=== PATIENT | female | born 1970 | race Caucasian/White ===

== ENCOUNTER 2016-06-02 09:59 | Emergency (ER) | payer OTHER ==
[2016-06-02 10:42] LABS: ALBUMIN 4.6 g/dL (3.5-5.0); BILIRUBIN - TOTAL 0.2 mg/dL (0.1-1.0); CREATININE 0.9 mg/dL (0.5-1.0); GLOBULIN (CALCULATION) 2.7 g/dL (2.2-4.2); POTASSIUM 4.4 mmol/L (3.5-5.1); TOTAL PROTEIN 7.3 g/dL (6.4-8.3)
[2016-06-02 10:43] LABS: PRO-BNP 20 pg/mL (0-125); TROPONIN T < 0.010 ng/mL
[2016-06-02 11:00] LABS: HCT 39.9 % (37.0-47.0); MCHC 35.1 g/dL (32.0-36.0); MCV 85.4 fL (78.0-100.0); PLT 212 K/uL (150-400); RBC 4.67 M/uL (4.20-5.40); WBC 10.1 K/uL (4.0-10.5)
[2016-06-02 11:14] LABS: MPV 11.9 fL (6.0-9.5); RDW 13.1 % (11.5-14.0)
[2016-06-02 11:15] LABS: EOSINOPHIL 1.6 % (0-5); LYMPHOCYTE 23.6 % (15-48); MONOCYTE 7.8 % (0-12); NEUTROPHIL 66.8 % (41-80)
[2016-06-02 11:18] LABS: BASOPHIL 0.2 % (0-2)
[2016-06-02 11:35] LABS: BILIRUBIN NEGATIVE (NEGATIVE); BLOOD 2+ Ery/uL (NEGATIVE); CLARITY CLEAR (CLEAR); COLOR YELLOW (YELLOW); GLUCOSE (U) NORMAL (NORMAL); KETONE (U) NEGATIVE (NEGATIVE); LEUKOCYTES NEGATIVE Leu/uL (NEGATIVE); NITRITE NEGATIVE (NEGATIVE); PROTEIN NEGATIVE (NEGATIVE); SPECIFIC GRAVITY <=1.005 (1.001-1.030); UROBILINOGEN 0.2 mg/dL (0.2-1.0)
[2016-06-02 11:47] LABS: BACTERIA TRACE
[2016-07-03] MEDS ORDERED: LIPITOR20 MG PO (11:49)
[2016-07-03] MEDS ORDERED: SINGULAIR10 MG PO (11:50)
[2016-07-03] MEDS ORDERED: FLONASE ALLER15.8 ML (11:50)
[2016-07-03] MEDS ORDERED: ALLEGRA ALLERG180 MG PO (11:50)
[2016-07-03] MEDS ORDERED: WELLBUTRIN SR150 M1 PO (11:51)
[2016-07-03] MEDS ORDERED: OMEPRAZOLE40 MG PO (11:51)
[2016-07-03] MEDS ORDERED: ATENOLOL25 M1 PO (11:51)
[2016-07-03] MEDS ORDERED: ALDACTONE100 MG PO (11:51)
[2016-07-03] MEDS ORDERED: ASPIRIN CHEWABL81 MG PO (11:51)
[2016-07-03] MEDS ORDERED: OSTEO BI-FLEX1 EAC1 PO (11:52)
[2016-07-03] MEDS ORDERED: BACLOFEN 10MG T10 MG PO (11:52)
[2016-07-03] MEDS ORDERED: SYNTHROID88 MCG PO (11:55)
[2016-07-03] MEDS ORDERED: WOMEN'S BIOMUL1 EACH PO (11:55)
[2016-07-03] MEDS ORDERED: CRANBERRY (11:56)
[2016-07-03] MEDS ORDERED: LOVAZA1 GM PO (11:56)
[2016-07-03] MEDS ORDERED: VITAMIN (11:56)
[2016-07-03] MEDS ORDERED: LUTEIN (11:56)
[2016-07-03] MEDS ORDERED: TRAMADOL HCL50 MG PO (11:57)
[2016-07-03] MEDS ORDERED: CHILDREN'S ALAWA5 ML OU (12:00)
[2016-07-03] MEDS ORDERED: NITROSTAT0.4 MG PO (12:02)
== END 2016-06-02 14:34 | disposition home or self-care (01) ==
LOC: FER 09:59
PROVIDERS: Emergency Medicine
DX: R07.89 Other chest pain (principal); M25.519 Pain in unspecified shoulder; I25.2 Old myocardial infarction; I10 Essential (primary) hypertension; E78.5 Hyperlipidemia, unspecified; Z79.82 Long term (current) use of aspirin; Z79.899 Other long term (current) drug therapy; Z87.891 Personal history of nicotine dependence; Z88.0 Allergy status to penicillin; Z82.49 Family history of ischemic heart disease and other diseases of the circulatory system; Z95.5 Presence of coronary angioplasty implant and graft; Z98.890 Other specified postprocedural states
CPT/HCPCS: 36415; 71020; 80053; 81001; 83880; 84484; 85025; 93005; J1885

== ENCOUNTER 2016-06-14 04:59 | Emergency (ER) | payer OTHER ==
[2016-07-03] MEDS ORDERED: LIPITOR20 MG PO (11:49)
[2016-07-03] MEDS ORDERED: SINGULAIR10 MG PO (11:50)
[2016-07-03] MEDS ORDERED: ALLEGRA ALLERG180 MG PO (11:50)
[2016-07-03] MEDS ORDERED: FLONASE ALLER15.8 ML (11:50)
[2016-07-03] MEDS ORDERED: ASPIRIN CHEWABL81 MG PO (11:51)
[2016-07-03] MEDS ORDERED: OMEPRAZOLE40 MG PO (11:51)
[2016-07-03] MEDS ORDERED: ALDACTONE100 MG PO (11:51)
[2016-07-03] MEDS ORDERED: WELLBUTRIN SR150 M1 PO (11:51)
[2016-07-03] MEDS ORDERED: ATENOLOL25 M1 PO (11:51)
[2016-07-03] MEDS ORDERED: BACLOFEN 10MG T10 MG PO (11:52)
[2016-07-03] MEDS ORDERED: OSTEO BI-FLEX1 EAC1 PO (11:52)
[2016-07-03] MEDS ORDERED: WOMEN'S BIOMUL1 EACH PO (11:55)
[2016-07-03] MEDS ORDERED: SYNTHROID88 MCG PO (11:55)
[2016-07-03] MEDS ORDERED: CRANBERRY (11:56)
[2016-07-03] MEDS ORDERED: LUTEIN (11:56)
[2016-07-03] MEDS ORDERED: LOVAZA1 GM PO (11:56)
[2016-07-03] MEDS ORDERED: VITAMIN (11:56)
[2016-07-03] MEDS ORDERED: TRAMADOL HCL50 MG PO (11:57)
[2016-07-03] MEDS ORDERED: CHILDREN'S ALAWA5 ML OU (12:00)
[2016-07-03] MEDS ORDERED: NITROSTAT0.4 MG PO (12:02)
== END 2016-06-14 07:54 | disposition left against medical advice (07) ==
LOC: FER 04:59
DX: M79.604 Pain in right leg (principal); Z53.8 Procedure and treatment not carried out for other reasons

== ENCOUNTER 2016-07-01 14:46 | Day surgery (SDCO) | payer OTHER ==
[2016-07-01 15:56] LABS: BASOPHIL 0.1 % (0-2); EOSINOPHIL 1.5 % (0-5); HCT 38.8 % (37.0-47.0); HGB 13.5 g/dl (12.5-16.0); LYMPHOCYTE 16.3 % (15-48); MCH 29.5 pg (25.0-31.0); MCHC 34.8 g/dL (32.0-36.0); MCV 84.9 fL (78.0-100.0); MONOCYTE 7.2 % (0-12); MPV 11.7 fL (6.0-9.5); NEUTROPHIL 74.9 % (41-80); PLT 217 K/uL (150-400); RBC 4.57 M/uL (4.20-5.40); RDW 13.1 % (11.5-14.0); WBC 11.8 K/uL (4.0-10.5)
[2016-07-01 16:00] LABS: PROTHROMBIN TIME 12.8 SECONDS (11.7-14.0); PTT 27.2 SECONDS (23.2-31.4)
[2016-07-01 16:03] LABS: BILIRUBIN NEGATIVE (NEGATIVE); BLOOD NEGATIVE Ery/uL (NEGATIVE); CLARITY CLEAR (CLEAR); COLOR YELLOW (YELLOW); GLUCOSE (U) NORMAL (NORMAL); KETONE (U) NEGATIVE (NEGATIVE); LEUKOCYTES NEGATIVE Leu/uL (NEGATIVE); NITRITE NEGATIVE (NEGATIVE); PROTEIN NEGATIVE (NEGATIVE); UROBILINOGEN 0.2 mg/dL (0.2-1.0); pH 5.5 (5.0-9.0)
[2016-07-01 16:07] LABS: ALBUMIN 4.4 g/dL (3.5-5.0); BILIRUBIN - TOTAL 0.2 mg/dL (0.1-1.0); CREATININE 0.9 mg/dL (0.5-1.0); GLOBULIN (CALCULATION) 2.8 g/dL (2.2-4.2); MAGNESIUM 1.88 mg/dL (1.40-2.10); POTASSIUM 4.2 mmol/L (3.5-5.1); TOTAL PROTEIN 7.2 g/dL (6.4-8.3)
[2016-07-01 16:10] LABS: CKMB 1.95 ng/mL (0.97-4.94); MYOGLOBIN 29 ng/mL (26-65); PRO-BNP 42 pg/mL (0-125); TROPONIN T < 0.010 ng/mL
[2016-07-01 22:54] LABS: TROPONIN T < 0.010 ng/mL
[2016-07-02 04:20] LABS: BASOPHIL 0.1 % (0-2); EOSINOPHIL 2.1 % (0-5); HCT 37.9 % (37.0-47.0); HGB 13.1 g/dl (12.5-16.0); LYMPHOCYTE 26.5 % (15-48); MCH 29.5 pg (25.0-31.0); MCHC 34.6 g/dL (32.0-36.0); MCV 85.4 fL (78.0-100.0); MONOCYTE 8.8 % (0-12); MPV 11.8 fL (6.0-9.5); NEUTROPHIL 62.5 % (41-80); PLT 229 K/uL (150-400); RBC 4.44 M/uL (4.20-5.40); RDW 13.1 % (11.5-14.0); WBC 11.7 K/uL (4.0-10.5)
[2016-07-02 05:13] LABS: TROPONIN T < 0.010 ng/mL
[2016-07-02 05:17] LABS: CREATININE 0.9 mg/dL (0.5-1.0); POTASSIUM 3.9 mmol/L (3.5-5.1)
[2016-07-03] MEDS ORDERED: LIPITOR20 MG PO (11:49)
[2016-07-03] MEDS ORDERED: SINGULAIR10 MG PO (11:50)
[2016-07-03] MEDS ORDERED: ALLEGRA ALLERG180 MG PO (11:50)
[2016-07-03] MEDS ORDERED: FLONASE ALLER15.8 ML (11:50)
[2016-07-03] MEDS ORDERED: ATENOLOL25 M1 PO (11:51)
[2016-07-03] MEDS ORDERED: OMEPRAZOLE40 MG PO (11:51)
[2016-07-03] MEDS ORDERED: ASPIRIN CHEWABL81 MG PO (11:51)
[2016-07-03] MEDS ORDERED: ALDACTONE100 MG PO (11:51)
[2016-07-03] MEDS ORDERED: WELLBUTRIN SR150 M1 PO (11:51)
[2016-07-03] MEDS ORDERED: OSTEO BI-FLEX1 EAC1 PO (11:52)
[2016-07-03] MEDS ORDERED: BACLOFEN 10MG T10 MG PO (11:52)
[2016-07-03] MEDS ORDERED: SYNTHROID88 MCG PO (11:55)
[2016-07-03] MEDS ORDERED: WOMEN'S BIOMUL1 EACH PO (11:55)
[2016-07-03] MEDS ORDERED: VITAMIN (11:56)
[2016-07-03] MEDS ORDERED: LUTEIN (11:56)
[2016-07-03] MEDS ORDERED: CRANBERRY (11:56)
[2016-07-03] MEDS ORDERED: LOVAZA1 GM PO (11:56)
[2016-07-03] MEDS ORDERED: TRAMADOL HCL50 MG PO (11:57)
[2016-07-03] MEDS ORDERED: CHILDREN'S ALAWA5 ML OU (12:00)
[2016-07-03] MEDS ORDERED: NITROSTAT0.4 MG PO (12:02)
== END 2016-07-02 17:35 | disposition home or self-care (01) ==
LOC: FER 14:46 → FTCU 16:20
PROVIDERS: Emergency Medicine; ADMIT Internal Medicine Cardiovascular Disease
DX: R07.89 Other chest pain (principal); I10 Essential (primary) hypertension; I25.10 Atherosclerotic heart disease of native coronary artery without angina pectoris; E03.9 Hypothyroidism, unspecified; K21.9 Gastro-esophageal reflux disease without esophagitis; L03.115 Cellulitis of right lower limb; F41.9 Anxiety disorder, unspecified; E66.01 Morbid (severe) obesity due to excess calories; Z90.49 Acquired absence of other specified parts of digestive tract; Z98.890 Other specified postprocedural states; Z88.0 Allergy status to penicillin; Z88.5 Allergy status to narcotic agent; Z88.1 Allergy status to other antibiotic agents; Z88.2 Allergy status to sulfonamides; Z91.040 Latex allergy status; Z82.49 Family history of ischemic heart disease and other diseases of the circulatory system; Z79.2 Long term (current) use of antibiotics; Z79.82 Long term (current) use of aspirin; Z79.899 Other long term (current) drug therapy
CPT/HCPCS: 36415; 71010; 80048; 80053; 80061; 81003; 82550; 82553; 83036; 83735; 83874; 83880; 84443; 84484; 85025; 85610; 85730; 93005; 93971; G0378; J1644

== ENCOUNTER 2020-04-12 19:46 | Emergency (ER) | payer OTHER ==
[~2020-04-12 19:46] MED LIST: ALDACTONE100 MG PO; ALLEGRA ALLERG180 MG PO; ASPIRIN CHEWABL81 MG PO; ASPIRIN EC81 MG PO; ATENOLOL25 M1 PO; ATENOLOL25 MG PO; BACLOFEN 10MG T10 MG PO; BACLOFEN10 MG PO; BUPROPION HCL150 M1 PO; CARAFATE S500 MG/TSP PO; CHILDREN'S ALAWA5 ML OU; CRANBERRY; ETODOLAC500 MG PO; FEXOFENADINE H180 MG PO; FIORICET1 EACH PO; FLONASE ALLER15.8 ML; LEVAQUIN500 MG PO; LEVOTHROID 0.0.15 MG PO; LEVOTHYROXINE137 MCG PO; LIPITOR20 MG PO; LOVAZA1 GM PO; LUTEIN; MEDROL 4MG DOSEP4 MG PO; MIRALAX17 GM PO; MOBIC7.5 MG PO; NITROSTAT0.4 MG PO; OMEPRAZOLE40 MG PO; ONDANSETRON ODT4 MG SL; OSTEO BI-FLEX1 EAC1 PO; OSTEO BI-FLEX1 EAC3 PO; PHENERGAN25 M1 PO; SINGULAIR10 MG PO; SYMBICORT 80-10.2 GM INH; SYNTHROID88 MCG PO; TOPROL XL 50 MG50 MG PO; TRAMADOL HCL50 MG PO; VENTOLIN HFA18 GM INH; VITAMIN; WELLBUTRIN SR150 M1 PO; WOMEN'S BIOMUL1 EACH PO
[2020-04-12 20:52] LABS: BASOPHIL 0.3 % (0-2); EOSINOPHIL 0.9 % (0-5); HCT 38.9 % (37.0-47.0); HGB 12.8 g/dl (12.5-16.0); MCH 30.5 pg (25.0-31.0); MCHC 32.9 g/dL (32.0-36.0); MCV 92.8 fL (78.0-100.0); MONOCYTE 8.2 % (0-12); MPV 12.3 fL (6.0-9.5); NEUTROPHIL 63.3 % (41-80); NRBC 0; PLT 226 K/uL (150-400); RBC 4.19 M/uL (4.20-5.40); RDW 11.9 % (11.5-14.0); WBC 9.9 K/uL (4.0-10.5)
[2020-04-12 21:04] LABS: ALBUMIN 3.6 g/dL (3.4-5.0); BILIRUBIN - TOTAL 0.1 mg/dL (0.2-1.0); POTASSIUM 3.9 mmol/L (3.5-5.1); TOTAL PROTEIN 6.6 g/dL (6.4-8.2)
[2020-04-12 21:42] LABS: BILIRUBIN NEGATIVE (NEGATIVE); BLOOD NEGATIVE Ery/uL (NEGATIVE); CLARITY CLEAR (CLEAR); COLOR YELLOW (YELLOW); GLUCOSE (U) NORMAL (NORMAL); LEUKOCYTES NEGATIVE Leu/uL (NEGATIVE); NITRITE NEGATIVE (NEGATIVE); PROTEIN NEGATIVE (NEGATIVE); SPECIFIC GRAVITY <=1.005 (1.001-1.030); UROBILINOGEN 0.2 mg/dL (0.2-1.0)
[2020-04-12 22:47] LABS: BILIRUBIN NEGATIVE (NEGATIVE); BLOOD NEGATIVE Ery/uL (NEGATIVE); CLARITY CLEAR (CLEAR); COLOR YELLOW (YELLOW); GLUCOSE (U) NORMAL (NORMAL); LEUKOCYTES NEGATIVE Leu/uL (NEGATIVE); NITRITE NEGATIVE (NEGATIVE); PROTEIN NEGATIVE (NEGATIVE); SPECIFIC GRAVITY <=1.005 (1.001-1.030); UROBILINOGEN 0.2 mg/dL (0.2-1.0)
== END 2020-04-12 23:35 | disposition home or self-care (01) ==
LOC: FER 19:46
PROVIDERS: Emergency Medicine
DX: R07.89 Other chest pain (principal); R06.02 Shortness of breath; R53.1 Weakness; R11.0 Nausea; I25.2 Old myocardial infarction; J45.909 Unspecified asthma, uncomplicated; Z88.0 Allergy status to penicillin; Z88.2 Allergy status to sulfonamides; Z88.5 Allergy status to narcotic agent; Z88.6 Allergy status to analgesic agent; Z88.1 Allergy status to other antibiotic agents; Z87.19 Personal history of other diseases of the digestive system
CPT/HCPCS: 36415; 80053; 81003; 83690; 84484; 85025; 85379; 93005

== ENCOUNTER 2020-07-21 15:05 | Emergency (ER) | payer OTHER ==
[2020-07-21 17:41] LABS: BASOPHIL 0.4 % (0-2); EOSINOPHIL 1.4 % (0-5); HCT 40.2 % (37.0-47.0); HGB 13.5 g/dl (12.5-16.0); LYMPHOCYTE 33.4 % (15-48); MCH 30.9 pg (25.0-31.0); MCHC 33.6 g/dL (32.0-36.0); MONOCYTE 7.6 % (0-12); MPV 12.2 fL (6.0-9.5); NEUTROPHIL 56.9 % (41-80); NRBC 0; PLT 206 K/uL (150-400); RBC 4.37 M/uL (4.20-5.40); RDW 12.6 % (11.5-14.0); WBC 7.9 K/uL (4.0-10.5)
[2020-07-21 17:52] LABS: BUN/CREAT RATIO (CALC) 11.6 RATIO; CREATININE 0.95 mg/dL (0.51-0.95); POTASSIUM 4.3 mmol/L (3.5-5.1)
[2020-07-21 17:59] LABS: BILIRUBIN NEGATIVE (NEGATIVE); BLOOD NEGATIVE Ery/uL (NEGATIVE); CLARITY CLEAR (CLEAR); COLOR YELLOW (YELLOW); GLUCOSE (U) NORMAL (NORMAL); LEUKOCYTES NEGATIVE Leu/uL (NEGATIVE); NITRITE NEGATIVE (NEGATIVE); PROTEIN NEGATIVE (NEGATIVE); UROBILINOGEN 0.2 mg/dL (0.2-1.0)
[2020-07-21 20:01] LABS: HCG (URINE) SCREEN NEGATIVE (NEGATIVE)
[2020-07-21 20:26] LABS: ALBUMIN 4.1 g/dL (3.4-5.0); ALKALINE PHOSHATASE 86 U/L (46-116); ALT 46 U/L (14-59); AST 26 U/L (15-37); BILIRUBIN - DIRECT <0.05 mg/dL (0.00-0.20); BILIRUBIN - TOTAL 0.2 mg/dL (0.2-1.0); GLOBULIN (CALCULATION) 3.6 g/dL; LIPASE 154 U/L (73-393); TOTAL PROTEIN 7.7 g/dL (6.4-8.2)
[2020-07-24 18:10] LABS: CHLAMYDIA TRACHOMATIS, NAA Negative (Negative); NEISSERIA GONORRHOEAE, NAA Negative (Negative)
== END 2020-07-22 02:11 | disposition home or self-care (01) ==
LOC: FER 15:05
PROVIDERS: Emergency Medicine; Student in an Organized Health Care Education/Training Program
DX: R10.9 Unspecified abdominal pain (principal); I10 Essential (primary) hypertension; J45.909 Unspecified asthma, uncomplicated; E07.9 Disorder of thyroid, unspecified; Z90.49 Acquired absence of other specified parts of digestive tract; Z87.42 Personal history of other diseases of the female genital tract; Z88.0 Allergy status to penicillin; Z88.1 Allergy status to other antibiotic agents; Z91.040 Latex allergy status; Z79.899 Other long term (current) drug therapy
CPT/HCPCS: 36415; 71275; 80048; 80076; 81003; 82553; 83690; 84145; 84703; 85025; 87210; 87491; 87591; 93005; 93971; J1100; J2405; J3010; Q9967

== ENCOUNTER 2021-05-07 12:15 | Emergency (ER) | payer OTHER ==
[2021-05-07 12:55] LABS: BASOPHIL 0.4 % (0-2); EOSINOPHIL 1.9 % (0-5); HCT 41.1 % (37.0-47.0); HGB 14.3 g/dl (12.5-16.0); LYMPHOCYTE 31.3 % (15-48); MCH 31.2 pg (25.0-31.0); MCHC 34.8 g/dL (32.0-36.0); MCV 89.5 fL (78.0-100.0); MONOCYTE 8.5 % (0-12); NEUTROPHIL 57.5 % (41-80); NRBC 0; PLT 227 K/uL (150-400); RBC 4.59 M/uL (4.20-5.40); RDW 12.4 % (11.5-14.0)
[2021-05-07 13:01] LABS: INR 1.01 (0.9-1.2); PROTHROMBIN TIME 12.7 SECONDS (11.8-13.4); PTT 26.4 SECONDS (24.4-34.7)
[2021-05-07 13:02] LABS: D-DIMER < 0.27 ug/mLFEU (0.00-0.41)
[2021-05-07 13:07] LABS: BILIRUBIN NEGATIVE (NEGATIVE); BLOOD NEGATIVE Ery/uL (NEGATIVE); CLARITY HAZY (CLEAR); COLOR YELLOW (YELLOW); GLUCOSE (U) NORMAL (NORMAL); LEUKOCYTES NEGATIVE Leu/uL (NEGATIVE); NITRITE POSITIVE (NEGATIVE); PROTEIN NEGATIVE (NEGATIVE); SPECIFIC GRAVITY <=1.005 (1.001-1.030)
[2021-05-07 13:11] LABS: AMPHETAMINES NEGATIVE (NEGATIVE); BARBITURATES NEGATIVE (NEGATIVE); ECSTASY (MDMA) NEGATIVE (NEGATIVE); MARIJUANA (THC) NEGATIVE (NEGATIVE); METHADONE NEGATIVE (NEGATIVE); OPIATES NEGATIVE (NEGATIVE); OXYCODONE NEGATIVE (NEGATIVE)
[2021-05-07 13:12] LABS: BUN/CREAT RATIO (CALC) 11.6 RATIO; CREATININE 0.95 mg/dL (0.51-0.95); POTASSIUM 3.9 mmol/L (3.5-5.1)
[2021-05-07 13:14] LABS: BACTERIA TRACE; SQUAMOUS EPITHELIAL CELLS RARE; URINARY RBC RARE; URINARY WBC RARE
[2021-05-07 13:59] LABS: CORONAVIRUS 2019 SARS-COV-2 NEGATIVE (NEGATIVE); INFLUENZA A NAA NEGATIVE (NEGATIVE)
[2021-05-07] MEDS ORDERED: ONDANSETRON HCL4 MG PO (14:59)
[2021-05-07] MEDS ORDERED: LEVAQUIN500 MG PO (14:59)
[2021-05-07] MEDS ORDERED: DIFLUCAN150 MG PO (14:59)
== END 2021-05-07 15:41 | disposition home or self-care (01) ==
LOC: FER 12:15
PROVIDERS: Nurse Practitioner Family
DX: N39.0 Urinary tract infection, site not specified (principal); R07.89 Other chest pain; R11.2 Nausea with vomiting, unspecified; I25.2 Old myocardial infarction; J45.909 Unspecified asthma, uncomplicated; Z20.822 Contact with and (suspected) exposure to COVID-19; Z88.0 Allergy status to penicillin; Z88.1 Allergy status to other antibiotic agents; Z88.5 Allergy status to narcotic agent; Z91.040 Latex allergy status
CPT/HCPCS: 36415; 71045; 80048; 80305; 81001; 84484; 85025; 85379; 85610; 85730; 87088; 93005; J2405; J7030; U0002

== ENCOUNTER 2021-07-31 08:43 | Emergency (ER) | payer OTHER ==
[~2021-07-31 08:43] MED LIST changes: +DIFLUCAN150 MG PO; +ONDANSETRON HCL4 MG PO
[2021-07-31 09:33] LABS: BASOPHIL 0.3 % (0-2); EOSINOPHIL 1.9 % (0-5); HGB 12.9 g/dl (12.5-16.0); LYMPHOCYTE 32.2 % (15-48); MCH 30.7 pg (25.0-31.0); MCHC 33.9 g/dL (32.0-36.0); MCV 90.5 fL (78.0-100.0); MONOCYTE 8.7 % (0-12); MPV 11.7 fL (6.0-9.5); NEUTROPHIL 56.6 % (41-80); NRBC 0; PLT 213 K/uL (150-400); RDW 12.3 % (11.5-14.0); WBC 9.4 K/uL (4.0-10.5)
[2021-07-31 10:06] LABS: BUN/CREAT RATIO (CALC) 14.7 RATIO; CREATININE 1.09 mg/dL (0.51-0.95)
[2021-07-31] MEDS ORDERED: MEDROL 4MG DOSEP4 MG PO (11:33)
== END 2021-07-31 12:02 | disposition home or self-care (01) ==
LOC: FER 08:43
PROVIDERS: Emergency Medicine
DX: M94.0 Chondrocostal junction syndrome [Tietze] (principal); I10 Essential (primary) hypertension; J45.909 Unspecified asthma, uncomplicated; Z88.0 Allergy status to penicillin; Z88.2 Allergy status to sulfonamides; Z88.5 Allergy status to narcotic agent; Z88.1 Allergy status to other antibiotic agents; Z88.6 Allergy status to analgesic agent; Z91.040 Latex allergy status
CPT/HCPCS: 36415; 71046; 80048; 84484; 85025; 85379; 93005

== ENCOUNTER 2021-12-16 22:03 | Emergency (ER) | payer OTHER ==
[2021-12-16 22:54] LABS: BASOPHIL 0.2 % (0-2); EOSINOPHIL 2.4 % (0-5); HCT 37.2 % (37.0-47.0); HGB 12.6 g/dl (12.5-16.0); LYMPHOCYTE 22.4 % (15-48); MCHC 33.9 g/dL (32.0-36.0); MCV 91.6 fL (78.0-100.0); MONOCYTE 7.8 % (0-12); MPV 11.6 fL (6.0-9.5); NEUTROPHIL 66.8 % (41-80); NRBC 0; PLT 215 K/uL (150-400); RBC 4.06 M/uL (4.20-5.40); RDW 12.7 % (11.5-14.0); WBC 8.5 K/uL (4.0-10.5)
[2021-12-16 23:09] LABS: INR 0.94 (0.9-1.2); PROTHROMBIN TIME 12.3 SECONDS (11.9-13.9); PTT 25.1 SECONDS (24.9-34.6)
[2021-12-16 23:17] LABS: ALBUMIN 3.6 g/dL (3.4-5.0); ALKALINE PHOSHATASE 99 U/L (46-116); ALT 33 U/L (14-59); AST 19 U/L (15-37); BILIRUBIN - TOTAL 0.1 mg/dL (0.2-1.0); BUN 15 mg/dL (7-18); BUN/CREAT RATIO (CALC) 12.7 RATIO; CHLORIDE 100 mmol/L (98-107); CO2 (BICARBONATE) 27 mmol/L (21-32); CREATININE 1.18 mg/dL (0.51-0.95); GLOBULIN (CALCULATION) 3.5 g/dL; GLUCOSE 92 mg/dL (74-106); POTASSIUM 4.3 mmol/L (3.5-5.1); TOTAL PROTEIN 7.1 g/dL (6.4-8.2)
[2021-12-16 23:31] LABS: CORONAVIRUS 2019 SARS-COV-2 NEGATIVE (NEGATIVE); INFLUENZA A NAA NEGATIVE (NEGATIVE)
[2021-12-16 23:59] LABS: BILIRUBIN NEGATIVE (NEGATIVE); BLOOD NEGATIVE Ery/uL (NEGATIVE); CLARITY CLEAR (CLEAR); COLOR YELLOW (YELLOW); GLUCOSE (U) NORMAL (NORMAL); LEUKOCYTES NEGATIVE Leu/uL (NEGATIVE); NITRITE NEGATIVE (NEGATIVE); PROTEIN NEGATIVE (NEGATIVE); SPECIFIC GRAVITY <=1.005 (1.001-1.030); UROBILINOGEN 0.2 mg/dL (0.2-1.0)
[2021-12-17] MEDS ORDERED: ONDANSETRON ODT4 MG PO (01:18)
== END 2021-12-17 02:15 | disposition home or self-care (01) ==
LOC: FER 22:03
PROVIDERS: Emergency Medicine
DX: R07.89 Other chest pain (principal); E86.0 Dehydration; I10 Essential (primary) hypertension; E03.9 Hypothyroidism, unspecified; J45.909 Unspecified asthma, uncomplicated; Z86.16 Personal history of COVID-19; Z88.0 Allergy status to penicillin; Z88.1 Allergy status to other antibiotic agents; Z88.6 Allergy status to analgesic agent; Z88.5 Allergy status to narcotic agent; Z91.040 Latex allergy status; Z20.822 Contact with and (suspected) exposure to COVID-19
CPT/HCPCS: 36415; 71045; 80053; 81003; 84484; 85025; 85610; 85730; 93005; J1885; J2405; J7030; U0002